=== PATIENT | male | born 1950 | race African-American/Black ===

== ENCOUNTER 2017-03-13 14:10 | Emergency (ER) | payer BC ==
--- NOTE | 2017-03-13 14:13 | PDOC ---
History of Present Illness - General History Source: Patient Exam Limitations: No Limitations <Baudilio Cannon - Last Filed: 03/13/17 15:02> - General History Source: Patient Exam Limitations: No Limitations - History of Present Illness Initial Comments: 03/13/17 15:03 The patient is a 66 year old male, with past medical history of HTN, HLD, and DM , who presents to the emergency room complaining of 1 month of a persistent dry cough. The cough is constant and is not exacerbated or alleviated by any factors. The patient finished a 7 day course of Augmentin prescribed by his PCP , Dr. Obrien. The cough has not subsided, but the antibiotics cleared up the nasal drip. Dr. Obrien advised him to come to the ER for an X-ray. 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 He notes that he gets this cough every year and wonders if it is due to seasonal allergies. He is also a former heavy smoker. Denies hemoptysis. Denies fever, chills, nausea, vomiting. Denies hx of asthma. Denies chest pain, SOB. Denies leg swelling. Allergies: none reported Social History: Former tobacco use. PCP: Dr. Obrien <Nedra Cunningham - Last Filed: 03/13/17 15:07> - General Chief Complaint: Cold Symptoms Stated Complaint: COUGH Time Seen by Provider: 03/13/17 14:12 Past History - Past Medical History Diabetes: Yes HTN: Yes Hypercholesterolemia: Yes - Psycho/Social/Smoking Cessation Hx Anxiety: No Suicidal Ideation: No Smoking History: Former smoker Have you smoked in the past 12 months: No If you are a former smoker, when did you quit?: 30 years ago Hx Alcohol Use: No Drug/Substance Use Hx: No Substance Use Type: None Hx Substance Use Treatment: No <Baudilio Cannon - Last Filed: 03/13/17 15:02> <Nedra Cunningham - Last Filed: 03/13/17 15:07> - Past Medical History Allergies/Adverse Reactions: Allergies Allergy/AdvReac Type Severity Reaction Status Date / Time No Known Allergies Allergy Verified 03/13/17 14:11 Home Medications: Ambulatory Orders Ezetimibe/Simvastatin [Vytorin 10-20 mg Tablet] 1 tab PO DAILY 05/28/16 Insulin Glargine,Hum.rec.anlog [Lantus Solostar PEN -] 25 units SQ DAILY Albuterol Sulfate Inhaler - [Ventolin HFA Inhaler -] 2 inh PO Q4H PRN #1 inh Azithromycin 250 mg PO DAILY #4 tablet 03/13/17 Prednisone [Deltasone] 60 mg PO DAILY #12 tablet 03/13/17 Review of Systems - Review of Systems Able to Perform ROS?: Yes Comments:: 03/13/17 15:04 GENERAL/CONSTITUTIONAL: No fever or chills. No weakness. HEAD, EYES, EARS, NOSE AND THROAT: No change in vision. No ear pain or discharge. No sore throat. CARDIOVASCULAR: No chest pain or shortness of breath. RESPIRATORY: +dry cough x 1 month. No wheezing, or hemoptysis. GASTROINTESTINAL: No nausea, vomiting, diarrhea or constipation. GENITOURINARY: No dysuria, frequency, or change in urination. MUSCULOSKELETAL: No joint or muscle swelling or pain. No neck or back pain. SKIN: No rash NEUROLOGIC: No headache, vertigo, loss of consciousness, or change in strength/ sensation. ENDOCRINE: No increased thirst. No abnormal weight change. HEMATOLOGIC/LYMPHATIC: No anemia, easy bleeding, or history of blood clots. ALLERGIC/IMMUNOLOGIC: No hives or skin allergy. <Nedra Cunningham - Last Filed: 03/13/17 15:07> *Physical Exam - Vital Signs Last Vital Signs Temp Pulse Resp BP Pulse Ox 99.1 F 72 20 166/98 97 03/13/17 14:11 03/13/17 14:11 03/13/17 14:11 03/13/17 14:11 03/13/17 14:11 - Physical Exam Comments: 03/13/17 15:04 GENERAL: Awake, alert, and fully oriented, in no acute distress, but coughing frequently. HEAD: No signs of trauma EYES: PERRLA, EOMI, sclera anicteric, conjunctiva clear ENT: Auricles normal inspection, hearing grossly normal, nares patent, oropharynx clear without exudates. Moist mucosa NECK: Normal ROM, supple, no lymphadenopathy, JVD, or masses LUNGS: Breath sounds equal, clear to auscultation bilaterally. No wheezes, and no crackles HEART: Regular rate and rhythm, normal S1 and S2, no murmurs, rubs or gallops EXTREMITIES: Normal range of motion, no edema. No clubbing or cyanosis. No cords, erythema, or tenderness NEUROLOGICAL: Cranial nerves II through XII grossly intact. Normal speech, normal gait SKIN: Warm, Dry, normal turgor, no rashes or lesions noted. <Nedra Cunningham - Last Filed: 03/13/17 15:07> ED Treatment Course - RADIOLOGY Radiology Studies Ordered: Category Date Time Status CHEST PA & LAT [RAD] Stat Radiology 03/13/17 14:12 Ordered <Baudilio Cannon - Last Filed: 03/13/17 15:02> - RADIOLOGY Radiograph Interpretation: 03/13/17 15:06 EXAM#: TYPE/EXAM: RESULT: [id number] RAD/CHEST PA LAT Chest CLINICAL: Cough PA and lateral views of the chest reveal the heart to be normal in size and contour. There is no evidence of infiltrate or congestive changes. There is no evidence of mediastinal masses or hilar adenopathy. The visualized osseous and soft tissue structures are unremarkable. IMPRESSION: Normal Chest Reported By: Prashant Begum MD 03/13/17 1504 - Medications Given in the ED: ED Medications Discontinued Medications Generic Name Dose Route Start Last Admin Trade Name Freq PRN Reason Stop Dose Admin Albuterol Sulfate 1 amp 03/13/17 14:50 03/13/17 15:00 Ventolin 0.083% Nebulizer Soln - NEB 03/13/17 14:51 1 amp ONCE ONE Administration Azithromycin 500 mg 03/13/17 14:50 03/13/17 15:00 Zithromax - PO 03/13/17 14:51 500 mg ONCE ONE Administration Prednisone 60 mg 03/13/17 14:50 03/13/17 15:00 Deltasone - PO 03/13/17 14:51 60 mg ONCE ONE Administration <Nedra Cunningham - Last Filed: 03/13/17 15:07> Medical Decision Making - Medical Decision Making 03/13/17 14:13 A portion of this note was documented by scribe services under my direction. I have reviewed the details of the note, within reason, and agree with the documentation with the following case summary and management plan written by me. Patient treated in the ED. Nursing notes are reviewed and incorporated into the medical decision-making. Vital signs reviewed. Peripheral IV access obtained by the nurse, laboratory studies are drawn and sent, reviewed and interpreted by myself. 66-year-old male history of hypertension, diabetes, hyperlipidemia presents with coughing for one 1 month. Patient reports that he's been coughing and has seen his primary care physician who prescribed him an antibiotic, augmentin, which he completed last week. However, the patient continues to persistently cough despite treatment with augmentin and the patient had contact his primary care physician who sent the patient to the ED for chest x-ray. He is overall nontoxic appearing and breathing comfortable and speaking in full sentences. However, he is brightly coughing throughout the exam. We'll obtain a chest x-ray and reassess. 03/13/17 14:54 The patient wheezes when coughing but clear when not coughing. Denies difficulty breathing. Does have distant smoking history. Chest xray interpreted by me, but pending official read, no infiltrates but some right peribronchial thickening. Will give azithromycin, prednisone, and albuterol. I have warned the patient that hyperglycemia is a side effect of the medication. Patient verbalizes understanding and agrees with plan. Case discussed with DR. Obrien who agrees with plan. Patient will follow up with him. I discussed the physical exam findings, ancillary test results and final diagnoses with the patient. I answered all of the patient's questions. The patient was satisfied with the care received and felt comfortable with the discharge plan and treatment plan. The patient will call their primary care physician within 24 hours to arrange follow-up and will return to the Emergency Department with any new, persistant or worsening symptoms. <Baudilio Cannon - Last Filed: 03/13/17 15:02> *DC/Admit/Observation/Transfer - Discharge Dispostion Admit: No <Baudilio Cannon - Last Filed: 03/13/17 15:02> - Attestations Scribe Attestion: 03/13/17 15:05 Documentation prepared by ALEJANDRO Moralez, acting as medical records analyst for Baudilio Cannon MD. <Nedra Cunningham - Last Filed: 03/13/17 15:07> Diagnosis at time of Disposition: Cough - Discharge Dispostion Disposition: HOME Condition at time of disposition: Stable - Prescriptions Prescriptions: Azithromycin 250 mg PO DAILY #4 tablet Prednisone [Deltasone] 60 mg PO DAILY #12 tablet Albuterol Sulfate Inhaler - [Ventolin HFA Inhaler -] 2 inh PO Q4H PRN #1 inh PRN Reason: Cough - Patient Instructions Printed Discharge Instructions: DI for Cough -- Adult Additional Instructions: Please take 2 puffs of albuterol every 4 hours as needed for wheezing. Please continue the prednisone and azithromycin as prescribed. The prednisone may cause stomach upset so take it with food. The medication may also alter your sugar levels and make it high. This is a side effect of the medication and will improve once you finish the prednisone. Take the azithromycin (antibiotic) as prescribed. Follow up with your primary care physician.
[2017-03-13 14:37] VITALS: BP 166/98; PULSE 72; TEMP 99.1; BMI 33.0
[2017-03-13] MEDS ORDERED: AZITHROMYCIN 250 MG TABLET (FP) PO ONE (14:50)
[2017-03-13] MEDS ORDERED: predniSONE 20 MG TABLET (UD) PO ONE (14:50)
[2017-03-13] MEDS ORDERED: ALBUTEROL SO4 0.083% IH SOL 2.5 MG/3 ML VIAL.NEB. NEB ONE ×2 (14:50→14:55)
[2017-03-13] MEDS ORDERED: predniSONE 20 MG TABLET (UD) ONE (14:55)
[2017-03-13] MEDS ORDERED: AZITHROMYCIN 250 MG TABLET (FP) ONE (14:56)
== END 2017-03-13 15:23 | disposition home or self-care (01) ==
LOC: FER 14:10
PROC: 3E0F7GC Introduction of Other Therapeutic Substance into Respiratory Tract, Via Natural or Artificial Opening (ICD-10-PCS; principal; 2017-03-13)
DX: R05 Cough (principal); I10 Essential (primary) hypertension; E78.5 Hyperlipidemia, unspecified; E11.9 Type 2 diabetes mellitus without complications; Z87.891 Personal history of nicotine dependence
CPT/HCPCS: 71020-TC; 99282-25

== ENCOUNTER 2018-01-27 07:50 | Day surgery (SDC) | payer OTHER ==
[2018-01-26 15:28] VITALS: BMI 36.2
[2018-01-27] MEDS ORDERED: PROPOFOL 20 ML ONE ×3 (09:14)
[2018-01-27 10:02] VITALS: TEMP 97.5
[2018-01-27 15:24] VITALS: BP 133/70; PULSE 80
--- NOTE | 2018-01-29 12:14 | PATH ---
Surgical Pathology Report Patient Name: KIRILL RAHMAN [facility]. Rec. #: [id number] /Age/Gender: 1950 (Age: 67) / M Account: [id number] Location: ASU-ENDOSCOPY Taken: 01/27/2018 Received: 01/27/2018 Reported: 01/29/2018 Physicians: Steve Pollard D.O. Specimen(s) Received A: LEFT COLON POLYP B: BX TRANSVERSE COLON POLYP PROXIMAL C: RECTAL POLYP Clinical History Personal history of colonic polyps Postoperative diagnosis: Diverticulosis, colon polyp Final Diagnosis A. left colon, polyp, biopsy: Hyperplastic polyp. Transverse colon, polyp, biopsy B transverse colon,polyp, biopsy: tubular adenoma. C. rectal polyp, biopsy: hyperplastic polyp. Electronically Signed Nicole Maravilla M.D. Gross Description A. Received in formalin, labeled "biopsy left colon polyp" are 3 veliz, irregular portions of soft tissue ranging from 0.1-0.2 cm. in greatest dimension. The specimens are submitted in toto in one cassette. B. Received in formalin, labeled "transverse colon polyp" are 2 veliz, irregular portions of soft tissue measuring 0.1 and 0.2 cm. in greatest dimension. The specimens are submitted in toto in one cassette. C. Received in formalin, labeled "biopsy rectal polyp" is a veliz, irregular portion of soft tissue measuring 0.3 cm. in greatest dimension. The specimen is submitted in toto in one cassette. /01/27/2018 saudi01/27/2018
== END 2018-01-27 10:35 | disposition home or self-care (01) ==
LOC: JASU-ENDO 07:50
PROVIDERS: ATTEND Internal Medicine Gastroenterology
PROC: 0DBL8ZX Excision of Transverse Colon, Via Natural or Artificial Opening Endoscopic, Diagnostic (ICD-10-PCS; 2018-01-27)
PROC: 0DBP8ZX Excision of Rectum, Via Natural or Artificial Opening Endoscopic, Diagnostic (ICD-10-PCS; 2018-01-27)
PROC: 0DBM8ZX Excision of Descending Colon, Via Natural or Artificial Opening Endoscopic, Diagnostic (ICD-10-PCS; principal; 2018-01-27 11:45)
DX: Z12.11 Encounter for screening for malignant neoplasm of colon (principal); Z86.010 Personal history of colon polyps; Z80.0 Family history of malignant neoplasm of digestive organs; K63.89 Other specified diseases of intestine; K57.30 Diverticulosis of large intestine without perforation or abscess without bleeding; D12.4 Benign neoplasm of descending colon; D12.3 Benign neoplasm of transverse colon; K62.1 Rectal polyp; K64.8 Other hemorrhoids; E11.9 Type 2 diabetes mellitus without complications; E66.9 Obesity, unspecified; I10 Essential (primary) hypertension
CPT/HCPCS: 88305-TC

== ENCOUNTER 2021-06-29 11:40 | Emergency (ER) | payer OTHER ==
[2021-06-29 12:44] VITALS: BP 164/82; PULSE 100; TEMP 98.9; BMI 38.7
[2021-06-29 12:56] LABS: HEMATOCRIT 38.2 % (35.4-49); HEMOGLOBIN 12.3 GM/dl (11.7-16.9); MCH 29.5 pg (25.7-33.7); MCHC 32.1 g/dl (32.0-35.9); MEAN CELL VOLUME 92.1 fl (80-96); MEAN PLT VOLUME 9.4 fl (7.5-11.1); PLATELET COUNT 239 10^3/uL (134-434); RBC 4.15 M/mm3 (4.00-5.60); RDW 13.7 % (11.9-15.9); WHITE BLOOD COUNT 9.9 K/mm3 (4.0-10.8)
[2021-06-29 13:03] LABS: ALBUMIN 3.8 g/dl (3.4-5.0); BILIRUBIN,TOTAL 0.5 mg/dl (0.2-1); CALCIUM 9.1 mg/dl (8.5-10); CREATININE 1.4 mg/dl (0.55-1.3); TOT PROT 7.4 g/dl (6.4-8.2)
== END 2021-06-29 14:52 | disposition home or self-care (01) ==
LOC: FER 11:40
DX: R25.2 Cramp and spasm (principal)
CPT/HCPCS: 36415; 80053; 81003; 81015; 82550; 82553; 83735; 84484; 85027; 93005; 99284-25

== ENCOUNTER 2023-04-02 19:36 | Emergency (ER) | payer OTHER ==
[2023-04-02 19:43] VITALS: BP 129/62; PULSE 96; RESP 17; TEMP 98.2; BMI 36.5
[2023-04-02] MEDS ORDERED: ACETAMINOPHEN 1000 MG/100 ML BAG IVPB ONE (21:28)
[2023-04-02] MEDS ORDERED: LIDOCAINE 5% TOPICAL PATCH TP ONE (21:29)
[2023-04-02] MEDS ORDERED: ACETAMINOPHEN INJECTION 100 ML IVPB ONE (21:59)
[2023-04-02] MEDS ORDERED: LIDOCAINE PATCH REMOVAL MC SCH (22:00)
[2023-04-02] MEDS ORDERED: LIDOCAINE 5% TOPICAL PATCH ONE (22:03)
[2023-04-02 22:21] LABS: BASO % 0.5 % (0-2.0); HEMATOCRIT 37.3 % (35.4-49); LYMPH % 20.6 % (8-40); MCH 29.3 pg (25.7-33.7); MCHC 32.2 g/dl (32.0-35.9); MEAN CELL VOLUME 90.8 fl (80-96); MEAN PLT VOLUME 8.4 fl (7.5-11.1); MONO % 7.8 % (3.8-10.2); NEUT % 70.1 % (42.8-82.8); PLATELET COUNT 267 10^3/uL (134-434); RBC 4.11 M/mm3 (4.00-5.60); RDW 13.4 % (11.9-15.9); WHITE BLOOD COUNT 10.4 K/mm3 (4.0-10.0)
[2023-04-02 22:39] LABS: CHLORIDE 104 mmol/L (98-107); SODIUM 136 mmol/L (136-145)
[2023-04-02 22:41] LABS: ALBUMIN 3.8 g/dl (3.4-5.0); BLOOD UREA NITROGEN 28.7 mg/dL (7-18); CALCIUM 9.8 mg/dL (8.5-10.1); CO2 24 mmol/L (21-32); GLUCOSE,RANDOM 96 mg/dL (74-106)
[2023-04-02 22:44] LABS: CREATININE 2.7 mg/dL (0.55-1.3); SGOT/AST 88 U/L (15-37)
[2023-04-02 22:46] LABS: BILIRUBIN,TOTAL 0.6 mg/dL (0.2-1); TOT PROT 7.8 g/dl (6.4-8.2)
[2023-04-02 22:47] LABS: ALK PHOS 255 U/L (45-117); ANION GAP 9 MMOL/L (8-16); POTASSIUM 6.9 mmol/L (3.5-5.1); SGPT/ALT 45 U/L (13-61)
[2023-04-02] MEDS ORDERED: SODIUM CHLORIDE 0.9% 1000 ML INFUS.BAG IV ONE (23:51)
== END 2023-04-03 01:19 | disposition left against medical advice (07) ==
LOC: JER 19:36
PROC: 3E033NZ Introduction of Analgesics, Hypnotics, Sedatives into Peripheral Vein, Percutaneous Approach (ICD-10-PCS; principal; 2023-04-02)
DX: M54.6 Pain in thoracic spine (principal); G89.29 Other chronic pain; N17.9 Acute kidney failure, unspecified; R06.02 Shortness of breath
CPT/HCPCS: 36415; 71046-TC-FY; 72070-TC-FY; 80053; 84484; 85025; 93005; 93010; 99285-25

== ENCOUNTER 2023-04-03 14:42 | Observation (INO) | payer OTHER ==
[2023-04-03 15:04] VITALS: RESP 18
[2023-04-03 17:35] LABS: HEMATOCRIT 36.4 % (35.4-49); HEMOGLOBIN 11.9 G/dL (11.7-16.9); MCH 30.5 pg (25.7-33.7); MCHC 32.7 g/dl (32.0-35.9); MEAN CELL VOLUME 93.4 fl (80-96); RDW 13.4 % (11.9-15.9); WHITE BLOOD COUNT 8.4 10^3/uL (4.0-10.8)
[2023-04-03 17:37] LABS: ALBUMIN 4.3 g/dl (3.4-5.0); BILIRUBIN,TOTAL 0.7 mg/dl (0.2-1); BLOOD UREA NITROGEN 30.4 mg/dl (7-18); CALCIUM 9.3 mg/dl (8.5-10.1); CREATININE 2.3 mg/dl (0.6-1.3); MAGNESIUM 2.1 mg/dL (1.8-2.4); PHOSPHOROUS 4.35 (2.5-4.9); POTASSIUM 4.4 mmol/L (3.5-5.1); SGOT/AST 19.8 U/L (15-37); SGPT/ALT 21.3 U/L (7-52); TOT PROT 6.9 g/dl (6.4-8.2)
[2023-04-03 19:15] LABS: PLATELET ESTIMATE ADEQUATE
[2023-04-03] MEDS ORDERED: SODIUM CHLORIDE 1,000 ML IV SCH (21:00)
[2023-04-03 21:46] VITALS: BMI 34.0
[2023-04-03] MEDS: INSULIN SLIDING SCALE (NOVOLOG) 1 VIAL SQ SCH (21:57)
[2023-04-03] MEDS ORDERED: PATIENT'S OWN MEDICATION (NON-FORMULARY) (Ezetimibe/Simvastatin [Ezetimibe-Simvastatin 10- PO SCH (22:00)
[2023-04-03] MEDS ORDERED: EZETIMIBE 10 MG TABLET (FP) PO SCH (22:00)
[2023-04-03] MEDS ORDERED: ATORVASTATIN CA 10 MG TABLET (FP) PO SCH (22:00)
[2023-04-04] MEDS: INSULIN SLIDING SCALE (NOVOLOG) 1 VIAL SQ SCH (06:53)
[2023-04-04] MEDS ORDERED: TAMSULOSIN HCL 0.4 MG CAP PO SCH (08:30)
[2023-04-04 09:16] LABS: ALBUMIN 3.9 g/dl (3.4-5.0); BILIRUBIN,TOTAL 0.4 mg/dl (0.2-1); BLOOD UREA NITROGEN 33.3 mg/dl (7-18); CALCIUM 8.9 mg/dl (8.5-10.1); CREATININE 1.9 mg/dl (0.6-1.3); POTASSIUM 5.2 mmol/L (3.5-5.1); SGOT/AST 19.4 U/L (15-37); TOT PROT 6.2 g/dl (6.4-8.2)
[2023-04-04 09:47] VITALS: BP 140/67; PULSE 77; TEMP 98.3
[2023-04-04] MEDS ORDERED: FINASTERIDE 5 MG TABLET (FP) PO SCH (10:00)
[2023-04-04] MEDS ORDERED: amLODIPine BESYLATE 5 MG TABLET (FP) PO SCH (10:00)
[2023-04-04] MEDS ORDERED: SODIUM ZIRCONIUM CYCLOSILICATE (LOKELMA) 5 GM PACKET PO SCH (10:00)
[2023-04-04 13:15] LABS: HEMATOCRIT 34.6 % (35.4-49); HEMOGLOBIN 10.9 GM/dL (11.7-16.9); MCH 28.8 pg (25.7-33.7); MCHC 31.6 g/dl (32.0-35.9); MEAN CELL VOLUME 91.1 fl (80-96); MEAN PLT VOLUME 8.9 fl (7.5-11.1); PLATELET COUNT 237 10^3/uL (134-434); RBC 3.79 M/mm3 (4.00-5.60); RDW 13.3 % (11.9-15.9); WHITE BLOOD COUNT 7.5 K/mm3 (4.0-10.0)
== END 2023-04-04 11:28 | disposition home or self-care (01) ==
LOC: FER 14:42 → FM/S 17:52
PROVIDERS: ADMIT Internal Medicine; ATTEND Family Medicine
PROC: 3E0337Z Introduction of Electrolytic and Water Balance Substance into Peripheral Vein, Percutaneous Approach (ICD-10-PCS; principal; 2023-04-03)
DX: N17.9 Acute kidney failure, unspecified (principal); E11.22 Type 2 diabetes mellitus with diabetic chronic kidney disease; I12.9 Hypertensive chronic kidney disease with stage 1 through stage 4 chronic kidney disease, or unspecified chronic kidney disease; R94.4 Abnormal results of kidney function studies; N18.9 Chronic kidney disease, unspecified; E86.0 Dehydration; E87.5 Hyperkalemia
CPT/HCPCS: 36415; 80053; 81003; 81015; 82570; 82962; 83735; 84100; 84156; 84300; 85025; 85027; 87086; 93005; 96360; 99285-25; G0378

== ENCOUNTER 2023-05-24 13:34 | Inpatient (IN) | payer OTHER ==
[2023-05-24 15:10] LABS: EPITHELIAL CELLS RARE /hpf; URINE HYALINE CAST 0-1 /lpf
[2023-05-24 15:19] LABS: HEMATOCRIT 30.4 % (35.4-49); HEMOGLOBIN 10.4 G/dL (11.7-16.9); MCH 31.4 pg (25.7-33.7); MCHC 34.3 g/dl (32.0-35.9); MEAN CELL VOLUME 91.5 fl (80-96); MEAN PLT VOLUME 7.9 fl (7.5-11.1); PLATELET COUNT 319.4 10^3/uL (134-434); RBC 3.32 10^6/uL (4.00-5.60); RDW 13.5 % (11.9-15.9); WHITE BLOOD COUNT 12.6 10^3/uL (4.0-10.8)
[2023-05-24 15:28] LABS: ALBUMIN 3.9 g/dl (3.4-5.0); ANION GAP 10 MMOL/L (8-16); BLOOD UREA NITROGEN 32.2 mg/dl (7-18); CALCIUM 9.3 mg/dl (8.5-10.1); CHLORIDE 87 mmol/L (98-107); CO2 21 mmol/L (21-32); CREATININE 1.6 mg/dl (0.6-1.3); GLUCOSE,RANDOM 109 mg/dl (74-106); MAGNESIUM 1.8 mg/dL (1.8-2.4); POTASSIUM 4.3 mmol/L (3.5-5.1); SGOT/AST 18.1 U/L (15-37); SGPT/ALT 17.2 U/L (7-52); SODIUM 118 mmol/L (136-145); TOT PROT 6.5 g/dl (6.4-8.2)
[2023-05-24 15:42] LABS: ALK PHOS 154 U/L (45-117)
[2023-05-24 15:59] LABS: ANISOCYTOSIS 1+; PLATELET ESTIMATE ADEQUATE
[2023-05-24 16:40] LABS: BLOOD UREA NITROGEN 31.4 mg/dl (7-18); CALCIUM 9.2 mg/dl (8.5-10.1); CREATININE 1.6 mg/dl (0.6-1.3); POTASSIUM 4.4 mmol/L (3.5-5.1)
[2023-05-24] MEDS ORDERED: ACETAMINOPHEN 500 MG TABLET (FP) PO ONE (16:55)
[2023-05-24] MEDS ORDERED: ACETAMINOPHEN 325 MG TABLET (FP) ONE (17:00)
[2023-05-24 17:04] LABS: BILIRUBIN,TOTAL 0.7 mg/dL (0.2-1)
[2023-05-24 17:07] LABS: N-TERMINAL BNP 95.6 pg/ml (5-125)
[2023-05-24 18:53] VITALS: BMI 31.1
[2023-05-24] MEDS: ATORVASTATIN CA 20 MG TABLET (FP) PO SCH (21:15)
[2023-05-24] MEDS: HEPARIN NA (PORCINE) 5,000 UNITS/ML 1ML VIAL SQ SCH (21:15)
[2023-05-24] MEDS ORDERED: ACETAMINOPHEN 325 MG TABLET (FP) PO PRN (23:00)
[2023-05-25] MEDS: INSULIN SLIDING SCALE (NOVOLOG) 1 VIAL SQ SCH ×4 (06:10→21:44)
[2023-05-25] MEDS: HEPARIN NA (PORCINE) 5,000 UNITS/ML 1ML VIAL SQ SCH ×3 (06:12→21:44)
[2023-05-25] MEDS: TAMSULOSIN HCL 0.4 MG CAP PO SCH (08:09)
[2023-05-25 08:15] LABS: HEMATOCRIT 32.4 % (35.4-49); HEMOGLOBIN 10.4 G/dL (11.7-16.9); MCHC 32.1 g/dl (32.0-35.9); MEAN CELL VOLUME 93.3 fl (80-96); MEAN PLT VOLUME 8.2 fl (7.5-11.1); PLATELET COUNT 326.9 10^3/uL (134-434); RBC 3.47 10^6/uL (4.00-5.60); WHITE BLOOD COUNT 9.7 10^3/uL (4.0-10.8)
[2023-05-25 09:10] LABS: PLATELET ESTIMATE ADEQUATE
[2023-05-25 09:30] LABS: ALBUMIN 3.5 g/dl (3.4-5.0); BLOOD UREA NITROGEN 27.7 mg/dl (7-18); CREATININE 1.3 mg/dl (0.6-1.3); MAGNESIUM 2.1 mg/dL (1.8-2.4); PHOSPHOROUS 4.1 (2.5-4.9); SGOT/AST 13.2 U/L (15-37); SGPT/ALT 13.8 U/L (7-52); TOT PROT 5.9 g/dl (6.4-8.2)
[2023-05-25] MEDS ORDERED: POTASSIUM CHLORIDE 10 MEQ in SODIUM CHLORIDE 1,000 ML IVPB SCH (10:00)
[2023-05-25 10:34] LABS: BILIRUBIN,TOTAL 0.6 mg/dL (0.2-1)
[2023-05-25 12:37] LABS: HEMATOCRIT 35.1 % (35.4-49); HEMOGLOBIN 11.3 G/dL (11.7-16.9); MCH 30.2 pg (25.7-33.7); MCHC 32.2 g/dl (32.0-35.9); MEAN CELL VOLUME 93.6 fl (80-96); MEAN PLT VOLUME 7.3 fl (7.5-11.1); PLATELET COUNT 367.8 10^3/uL (134-434); RBC 3.75 10^6/uL (4.00-5.60); RDW 14.4 % (11.9-15.9); WHITE BLOOD COUNT 10.1 10^3/uL (4.0-10.8)
[2023-05-25 13:06] LABS: ALBUMIN 3.9 g/dl (3.4-5.0); BLOOD UREA NITROGEN 27.8 mg/dl (7-18); CALCIUM 9.6 mg/dl (8.5-10.1); CREATININE 1.4 mg/dl (0.6-1.3); POTASSIUM 4.8 mmol/L (3.5-5.1); SGOT/AST 13.7 U/L (15-37); SGPT/ALT 16.5 U/L (7-52); TOT PROT 6.5 g/dl (6.4-8.2)
[2023-05-25] MEDS ORDERED: DEXTROSE 5%-WATER - 1,000 ML IV SCH (13:30)
[2023-05-25 13:56] LABS: BILIRUBIN,TOTAL 0.4 mg/dL (0.2-1)
[2023-05-25] MEDS: amLODIPine BESYLATE 5 MG TABLET (FP) PO SCH (16:18)
[2023-05-25 19:24] LABS: CALCIUM 8.5 mg/dl (8.5-10.1); CREATININE 0.6 mg/dl (0.6-1.3); POTASSIUM 3.5 mmol/L (3.5-5.1)
[2023-05-25] MEDS: ATORVASTATIN CA 20 MG TABLET (FP) PO SCH (21:44)
[2023-05-25] MEDS ORDERED: FAMOTIDINE 20 MG/50 ML IVPB 20 MG/50 ML MG IVPB ONE (23:22)
[2023-05-26] MEDS: HEPARIN NA (PORCINE) 5,000 UNITS/ML 1ML VIAL SQ SCH ×3 (06:56→21:38)
[2023-05-26] MEDS: INSULIN SLIDING SCALE (NOVOLOG) 1 VIAL SQ SCH ×4 (06:56→21:38)
[2023-05-26 08:49] LABS: HEMATOCRIT 33.7 % (35.4-49); HEMOGLOBIN 10.8 G/dL (11.7-16.9); MCH 30.1 pg (25.7-33.7); MCHC 32.2 g/dl (32.0-35.9); MEAN CELL VOLUME 93.5 fl (80-96); MEAN PLT VOLUME 8.2 fl (7.5-11.1); PLATELET COUNT 364.6 10^3/uL (134-434); RDW 14.3 % (11.9-15.9); WHITE BLOOD COUNT 10.4 10^3/uL (4.0-10.8)
[2023-05-26] MEDS: TAMSULOSIN HCL 0.4 MG CAP PO SCH (09:17)
[2023-05-26] MEDS: amLODIPine BESYLATE 5 MG TABLET (FP) PO SCH (09:17)
[2023-05-26 09:18] VITALS: RESP 18
[2023-05-26 09:34] LABS: BLOOD UREA NITROGEN 25.3 mg/dl (7-18); CALCIUM 9.5 mg/dl (8.5-10.1); CREATININE 1.5 mg/dl (0.6-1.3)
[2023-05-26] MEDS: DEXTROSE 5%-WATER - 1,000 ML IV SCH (13:19)
[2023-05-26] MEDS: ATORVASTATIN CA 20 MG TABLET (FP) PO SCH (21:38)
[2023-05-27] MEDS: HEPARIN NA (PORCINE) 5,000 UNITS/ML 1ML VIAL SQ SCH ×2 (06:28→16:07)
[2023-05-27] MEDS: INSULIN SLIDING SCALE (NOVOLOG) 1 VIAL SQ SCH ×2 (06:28→11:28)
[2023-05-27 09:16] LABS: ALBUMIN 3.9 g/dl (3.4-5.0); BLOOD UREA NITROGEN 19.4 mg/dl (7-18); CALCIUM 9.6 mg/dl (8.5-10.1); CREATININE 1.3 mg/dl (0.6-1.3); POTASSIUM 4.7 mmol/L (3.5-5.1); SGOT/AST 13.9 U/L (15-37); SGPT/ALT 18.7 U/L (7-52); TOT PROT 6.5 g/dl (6.4-8.2)
[2023-05-27] MEDS: TAMSULOSIN HCL 0.4 MG CAP PO SCH (09:34)
[2023-05-27] MEDS: amLODIPine BESYLATE 5 MG TABLET (FP) PO SCH (09:35)
[2023-05-27 13:05] LABS: BILIRUBIN,TOTAL 0.3 mg/dl (0.2-1)
[2023-05-27 14:33] VITALS: BP 122/63; PULSE 83; TEMP 98.6
[2023-05-27] MEDS: DEXTROSE 5%-WATER - 1,000 ML IV SCH (15:34)
== END 2023-05-27 16:07 | disposition home or self-care (01) | DRG 641 ==
LOC: FER 13:34 → FM/S 17:16
PROVIDERS: ADMIT Internal Medicine; ATTEND Family Medicine
DX: E87.1 Hypo-osmolality and hyponatremia (principal); R33.9 Retention of urine, unspecified; N40.0 Benign prostatic hyperplasia without lower urinary tract symptoms; E87.5 Hyperkalemia; E78.5 Hyperlipidemia, unspecified; R19.7 Diarrhea, unspecified; I12.9 Hypertensive chronic kidney disease with stage 1 through stage 4 chronic kidney disease, or unspecified chronic kidney disease; E11.22 Type 2 diabetes mellitus with diabetic chronic kidney disease; N18.9 Chronic kidney disease, unspecified
CPT/HCPCS: 36415; 71046-TC-FY; 74176-TC; 80048; 80053; 81003; 81015; 82962; 83735; 83880; 83930; 84100; 84156; 84300; 84484; 85025; 85027; 87045; 87046; 87086; 87186; 87899; 93005; 99285-25; J1644